=== PATIENT | male | born 1980 ===

== ENCOUNTER 2019-11-23 14:24 | Emergency (ER) | payer MEDICAID, SELFPAY ==
[2019-11-23 14:36] VITALS: BP 154/108; PULSE 81; RESP 17; TEMP 36.8; O2SAT 98; BMI 21.5
[2019-11-23 15:43] VITALS: BP 133/102; PULSE 98; RESP 18; TEMP 36.7; O2SAT 99
--- NOTE | 2019-11-23 15:46 | ED_ITS ---
HPI - Dental/Oral General: Chief complaint: Dental/Oral Stated complaint: DENTAL PAIN/EARACHE Time Seen by Provider: 11/23/19 15:46 Source: patient Mode of arrival: ambulatory Limitations: no limitations History of Present Illness: HPI Narrative: Patient is a 39-year-old male here here for complaints of a toothache over the past couple of days; patient states he had a tooth break off and has been in excruciating pain since; patient apparently has an appointment at [facility] dental in about a week for evaluation; he has not noticed any facial swelling MD Complaint: tooth pain Onset (ago): day(s) Duration: constant Severity: moderate Relieving factors: nothing Exacerbating factors: chewing, cold, heat and drinking fluids Context: history of dental caries Associated symptoms: Reports no associated symptoms; Denies ear or mastoid pain, fever(s) or painful swallowing Treatment prior to arrival: topical analgesic and oral analgesic Review of Systems Const: Denies: fever or chills ENMT: Reports: dental pain; Denies: throat pain, enlarged tonsils, painful swallowing, swelling of lips/tongue, oral sores/lesions, ear pain, tinnitus, nasal discharge, nasal congestion or post nasal drip PFSH ED PFSH: Statuses (acute, chronic, etc) shown below reflect problem list status as previously entered and may not be historically accurate Social History Smoking and tobacco status: current every day smoker Physical Exam Const: COMMON NORMALS: no apparent distress, average body habitus, oriented x3, no limitations, alert and well nourished HENMT: COMMON NORMALS: normocephalic, head/scalp atraumatic, hearing grossly normal bilaterally, external ears normal, EAC's normal, TM's normal bilaterally, external nose normal, nasal mucous membranes and turbinates normal, moist oral mucous membranes and oropharynx normal HEAD & SCALP: normocephalic and atraumatic NOSE: external nose normal and nasal mucous membranes and turbinates normal EXTERNAL EAR: Yes external ears normal EXTERNAL AUDITORY CANAL: EAC's normal TYMPANIC MEMBRANE: TM's normal bilaterally TEETH & GINGIVA: Yes caries and Yes poor dentition TEETH & GINGIVA IMAGES: 1. Extremely decayed broken molar OTHER: No abscess noted; no submandibular swelling; facial cellulitis; floor of mouth is soft Neck/C-Spine: COMMON NORMALS: no lymphadenopathy Neuro: COMMON NORMALS: oriented x3 SENSORIUM/ORIENTATION: Yes alert Course Vital Signs: Vital signs: Vital Signs Temperature 98.0 F 11/23/19 15:43 Pulse Rate 98 11/23/19 15:43 Respiratory Rate 18 11/23/19 15:43 Blood Pressure 133/102 11/23/19 15:43 Pulse Oximetry 99 11/23/19 15:43 Discharge Plan Discharge Patient Disposition: Home, Self-Care Clinical Impression: Dental caries Fracture of tooth Qualifiers: Encounter type: initial encounter Fracture type: closed Qualified Code(s): S02.5XXA - Fracture of tooth (traumatic), initial encounter for closed fracture Condition: Stable Prescriptions: New clindamycin HCl 300 mg capsule 300 mg PO Q6H 7 Days Qty: 28 RF: 0 tramadol 50 mg tablet 50 mg PO Q6H PRN (Reason: pain) Qty: 14 RF: 0 Discharge Orders: Discharge Order (Routine); Ordered 11/23/19 Ordered By: Nallely Gonzalez Referrals: Carol Tabor DO [Primary Care Provider] - Discharge Diet: GI Soft Discharge Activity: Resume usual activity Activity Restrictions/Additional Instructions: He may continue using the topical/oral numbing agents. Continue with medicated mouth rinse and rinsing mouth after eating. Follow-up with your scheduled dental appointment. Coding Level of Care Code ED [employer] Exam Problem Focused
--- NOTE | 2019-11-23 15:53 | PC.NURSE ---
Warm blanket provided to pt. States slight relief from pain
--- NOTE | 2019-11-23 16:02 | PC.NURSE ---
I AGREE WITH THIS ASSESSMENT
[2019-11-23 16:31] VITALS: BP 149/91; PULSE 75; RESP 16; TEMP 36.8; O2SAT 98
== END 2019-11-23 16:34 | disposition home or self-care (01) ==
PROVIDERS: Emergency Provider Physician Assistant; Family Provider Family Medicine; PCP Family Medicine
DX: S02.5XXA Fracture of tooth (traumatic), initial encounter for closed fracture (principal); X58.XXXA Exposure to other specified factors, initial encounter; F17.210 Nicotine dependence, cigarettes, uncomplicated
CPT/HCPCS: 99281

== ENCOUNTER 2020-07-07 21:03 | Emergency (ER) | payer MEDICAID, SELFPAY ==
[2020-07-07 21:23] VITALS: PULSE 97; RESP 16; TEMP 36.6; O2SAT 99
== END 2020-07-07 22:42 ==
PROVIDERS: PCP Nurse Practitioner Family
DX: Z53.21 Procedure and treatment not carried out due to patient leaving prior to being seen by health care provider (principal)
CPT/HCPCS: 99281

== ENCOUNTER → 2023-04-01 14:59 | Outpatient (BNVA) | payer MEDICAID, SELFPAY | PROVIDERS: PCP Nurse Practitioner; Visit Provider Family Medicine | DX: M79.642 Pain in left hand (principal) | CPT/HCPCS: 73130 ==

== ENCOUNTER → 2023-07-03 14:47 | Outpatient (BNVA) | payer MEDICAID, SELFPAY | PROVIDERS: PCP Nurse Practitioner; Visit Provider Nurse Practitioner Family | DX: Z20.822 Contact with and (suspected) exposure to COVID-19 (principal) | CPT/HCPCS: 87426 ==

== ENCOUNTER → 2023-11-04 13:45 | Outpatient (BNVA) | payer MEDICAID, SELFPAY | PROVIDERS: PCP Nurse Practitioner; Visit Provider Nurse Practitioner Family | DX: R53.1 Weakness (principal) | CPT/HCPCS: 80053; 85025 ==